=== PATIENT | female | born 1990 | race Caucasian/White ===

== ENCOUNTER 2021-05-15 03:56 | Emergency (ER) | payer MEDICAID ==
--- NOTE | 2021-05-15 04:23 | EDM.PDOC ---
ED HPI GENERAL MEDICAL PROBLEM - General Chief Complaint: General Stated Complaint: throwing up blood Time Seen by Provider: 05/15/21 04:10 Source of Information: Reports: Patient History Limitations: Reports: No Limitations - History of Present Illness INITIAL COMMENTS - FREE TEXT/NARRATIVE: Patient presented to the ED because of productive cough X 4 days and this morning she had hemoptysis X 1. There is no fever or chills but has bee coughing a lot. - Related Data Allergies Allergy/AdvReac Type Severity Reaction Status Date / Time peanut Allergy Airway Verified 05/15/21 04:10 Tightness Penicillins Allergy Airway Verified 05/15/21 04:10 Tightness Home Meds: Home Meds Codeine/guaiFENesin [guaiFENesin-Codeine Syrup] 10 ml PO Q6H PRN #120 ml 05/15/21 [Rx] Cyclobenzaprine [Flexeril] 10 mg PO ASDIRECTED PRN 05/15/21 [History] Sertraline [Zoloft] 100 mg PO DAILY 05/15/21 [History] metFORMIN [Glucophage XR] 500 mg PO DAILY 05/15/21 [History] Social & Family History - Tobacco Use Tobacco Use Status *Q: Current Every Day Tobacco User Years of Tobacco use: 15 Packs/Tins Daily: 0.5 - Caffeine Use Caffeine Use: Reports: Coffee - Recreational Drug Use Recreational Drug Use: Yes Recreational Drug Type: Reports: Marijuana/Hashish Recreational Drug Use Frequency: Socially ED ROS GENERAL - Review of Systems Review Of Systems: See Below Constitutional: Reports: No Symptoms HEENT: Reports: No Symptoms Respiratory: Reports: Cough, Hemoptysis Cardiovascular: Reports: No Symptoms Endocrine: Reports: No Symptoms GI/Abdominal: Reports: No Symptoms : Reports: No Symptoms Musculoskeletal: Reports: No Symptoms Skin: Reports: No Symptoms Neurological: Reports: No Symptoms ED EXAM, GENERAL - Physical Exam Exam: See Below Exam Limited By: No Limitations General Appearance: Alert, No Apparent Distress Eye Exam: Bilateral Eye: PERRL Ears: Normal External Exam, Normal Canal Nose: Normal Inspection, Normal Mucosa, No Blood Throat/Mouth: Normal Inspection, Normal Lips, Normal Teeth Head: Atraumatic, Normocephalic Neck: Normal Inspection, Supple, Non-Tender, Full Range of Motion Respiratory/Chest: No Respiratory Distress, Lungs Clear, Normal Breath Sounds, No Accessory Muscle Use, Chest Non-Tender Cardiovascular: Normal Peripheral Pulses, Regular Rate, Rhythm, No Edema, No Gallop, No JVD, No Murmur, No Rub GI/Abdominal: Normal Bowel Sounds, Soft, Non-Tender, No Organomegaly, No Distention Back Exam: Normal Inspection, Full Range of Motion Extremities: Normal Inspection, Normal Range of Motion Course - Vital Signs Text/Narrative:: Robitussin with codeine 10 ml PO x1 Last Recorded V/S: Last Vital Signs Temp 36.0 C L 05/15/21 04:06 Pulse 75 05/15/21 04:06 Resp 16 05/15/21 04:06 BP 137/73 05/15/21 04:06 Pulse Ox 96 05/15/21 04:06 - Orders/Labs/Meds Meds: Medications Discontinued Medications Generic Name Dose Route Start Last Admin Trade Name Freq PRN Reason Stop Dose Admin Guaifenesin/Codeine Phosphate 10 ml 05/15/21 04:24 Codeine/Guaifenesin 10-100 Mg/5 Ml Syrup 5 Ml Cup PO 05/15/21 04:25 NOW STA Departure - Departure Time of Disposition: 16:30 Disposition: Home, Self-Care 01 Condition: Good Clinical Impression: Hemoptysis, Bronchitis - Discharge Information Prescriptions: Codeine/guaiFENesin [guaiFENesin-Codeine Syrup] 10 ml PO Q6H PRN #120 ml PRN Reason: Cough Instructions: Hemoptysis, [id number], Acute Bronchitis, Adult, [id number] Referrals: Laney Baron MD [Primary Care Provider] - Forms: ED Department Discharge Additional Instructions: Please read discharge instructions on hemoptysis(coughing out blood) and acute bronchitis Increase oral fluids Take Robitussin with codeine 10 ml every 4-6 hours as needed for cough Follow up as needed Sepsis Event Note (ED) - Evaluation Sepsis Screening Result: No Definite Risk - Focused Exam Vital Signs: Vital Signs Temp Pulse Resp BP Pulse Ox 05/15/21 04:06 36.0 C L 75 16 137/73 96
[2021-05-15] MEDS ORDERED: Codeine/guaiFENesin 10-100 MG/5 ML Syrup 5 ML Cup PO STA (04:24)
== END 2021-05-15 04:40 | disposition home or self-care (01) ==
LOC: FB.ED 03:56
DX: J40 Bronchitis, not specified as acute or chronic (principal); R04.2 Hemoptysis; Z72.0 Tobacco use; Z91.010 Allergy to peanuts; Z88.0 Allergy status to penicillin; Z79.899 Other long term (current) drug therapy
CPT/HCPCS: 99283; A9270

== ENCOUNTER 2021-07-14 14:57 | Emergency (ER) | payer MEDICAID ==
[2021-07-14] MEDS ORDERED: Sertraline 100 MG Tab PO STA (15:29)
[2021-07-14] MEDS ORDERED: LORazepam 2 MG/ML SDV IM STA (15:29)
--- NOTE | 2021-07-14 16:45 | EDM.PDOCBH ---
ED HPI GENERAL MEDICAL PROBLEM - General Chief Complaint: Behavioral/Psych Stated Complaint: MENTAL HEALTH Time Seen by Provider: 07/14/21 16:10 Source of Information: Reports: Patient, Family History Limitations: Reports: No Limitations - History of Present Illness INITIAL COMMENTS - FREE TEXT/NARRATIVE: Patient presented to the ED because of suicidal ideation, and worsening anxiety and depression. She does not have an active plan and told me that she does not want to because of her child.Denies having any hallucination, homicidal ideation. Her main stressors according to her are financial issues and family relationship. She is taking Zoloft 100 mg daily but ran out of her prescription a week ago and her PMD won't refill it. Headache Pain Score (Numeric/FACES): 10 - Related Data Allergies Allergy/AdvReac Type Severity Reaction Status Date / Time peanut Allergy Airway Verified 05/15/21 04:10 Tightness Penicillins Allergy Airway Verified 05/15/21 04:10 Tightness Home Meds: Home Meds Cyclobenzaprine [Flexeril] 10 mg PO BEDTIME PRN 05/15/21 [History] Sertraline [Zoloft] 100 mg PO DAILY 05/15/21 [History] ARIPiprazole [Abilify] 5 mg PO DAILY 07/14/21 [History] Sertraline HCl [Zoloft] 100 mg PO DAILY #30 tablet 07/14/21 [Rx] hydrOXYzine HCL [hydrOXYzine] 25 mg PO TID PRN 07/14/21 [History] predniSONE [Prednisone] 10 mg PO ASDIRECTED PRN 07/14/21 [History] Past Medical History HEENT History: Reports: Allergic Rhinitis Genitourinary History: Reports: None SHOEBLACK History: Reports: Polycystic Ovaries, Other SHOEBLACK History: Psychiatric History: Reports: Anxiety, Depression, Other (See Below) Other Psychiatric History: States being assessed for schizophrenia d/t her dad having it. - Past Surgical History Female Surgical History: Reports: Section Social & Family History - Caffeine Use Caffeine Use: Reports: Coffee ED ROS GENERAL - Review of Systems Review Of Systems: See Below Constitutional: Reports: No Symptoms HEENT: Reports: No Symptoms Respiratory: Reports: No Symptoms Cardiovascular: Reports: No Symptoms Endocrine: Reports: No Symptoms GI/Abdominal: Reports: No Symptoms : Reports: No Symptoms Musculoskeletal: Reports: No Symptoms Skin: Reports: No Symptoms Neurological: Reports: No Symptoms Psychiatric: Reports: Anxiety, Depression ED EXAM, BEHAVIORAL HEALTH - Physical Exam Exam: See Below Exam Limited By: No Limitations General Appearance: Alert, No Apparent Distress Eye Exam: Bilateral Eye: PERRL Ears: Normal External Exam, Normal Canal, Normal TMs Nose: Normal Inspection, Normal Mucosa, No Blood Throat/Mouth: Normal Inspection, Normal Lips, Normal Teeth, Normal Gums, Normal Oropharynx Head: Atraumatic, Normocephalic Neck: Normal Inspection, Supple, Non-Tender, Full Range of Motion Respiratory/Chest: No Respiratory Distress, Lungs Clear, Normal Breath Sounds, No Accessory Muscle Use, Chest Non-Tender Cardiovascular: Normal Peripheral Pulses, Regular Rate, Rhythm, No Edema, No Gallop, No JVD, No Murmur, No Rub GI/Abdominal: Normal Bowel Sounds, Soft, Non-Tender, No Organomegaly Back Exam: Normal Inspection, Full Range of Motion Extremities: Normal Inspection, Normal Range of Motion, Non-Tender, No Pedal Edema, Normal Capillary Refill COURSE, BEHAVIORAL HEALTH COMP - Course Vital Signs: Last Vital Signs Temp 36.9 C 07/14/21 16:00 Pulse 98 07/14/21 16:00 Resp 20 07/14/21 16:00 BP 141/94 H 07/14/21 16:00 Pulse Ox 100 07/14/21 16:00 Lab result was reviewed and discussed with patient Aivan 1 mg IM x1 Zoloft 100 mg PO x1 [facility] consult who recommended outpatient psych treatment and restart zoloft 100 mg daily. Orders, Labs, Meds: Active Orders 24 hr Category Date Time Status THYROXINE (T4) FREE, DIRECT Stat Lab 07/14/21 15:30 Received Laboratory Tests 07/14/21 07/14/21 07/14/21 Range/Units 15:30 15:30 15:30 WBC 11.5 H (3.0-10.3) x10-3/uL RBC 4.69 (3.60-5.20) x10(6)uL Hgb 12.0 (11.4-15.5) g/dL Hct 37.1 (34.2-48.2) % MCV 79.3 (76.7-100.5) fL MCH 25.7 (23.9-33.9) pg MCHC 32.4 (31.9-34.8) g/dL RDW 15.7 (12.3-16.5) % Plt Count 364 (151-488) x10(3)uL MPV 8.4 (7.1-12.4) fL Neut % (Auto) 66.7 (30.8-76.2) % Lymph % (Auto) 20.4 (18.4-52.1) % [place] % (Auto) 6.4 (4.4-15.7) % Eos % (Auto) 5.8 (0.6-8.1) % Baso % (Auto) 0.7 (0.2-1.5) % Neut # (Auto) 7.7 H (1.5-6.3) x10-3/uL Lymph # (Auto) 2.3 (1.0-4.4) x10-3/uL [place] # (Auto) 0.7 (0.3-1.0) x10-3/uL Eos # (Auto) 0.7 (0.0-0.8) x10-3/uL Baso # (Auto) 0.1 (0.0-0.1) x10-3/uL Sodium 140 (135-145) mmol/L Potassium 3.4 L (3.5-5.3) mmol/L Chloride 104 (100-110) mmol/L Carbon Dioxide 27 (21-32) mmol/L BUN 12 (7-18) mg/dL Creatinine 0.7 (0.55-1.02) mg/dL Est Cr Clr Drug Dosing TNP Estimated GFR (MDRD) > 60 (>60) BUN/Creatinine Ratio 17.1 (9-20) Glucose 95 (80-116) mg/dL Calcium 8.6 (8.6-10.2) mg/dL Total Bilirubin 0.4 (0.1-1.3) mg/dL AST 23 (5-25) IU/L ALT 37 H (12-36) U/L Alkaline Phosphatase 117 H (56-112) IU/L Total Protein 7.9 (6.0-8.0) g/dL Albumin 3.4 L (3.5-5.2) g/dL Globulin 4.5 g/dL Albumin/Globulin Ratio 0.8 TSH, Ultra Sensitive 1.12 (0.36-3.74) IU/mL Urine Color (YELLOW) Urine Appearance (CLEAR) Urine pH (5.0-6.5) Ur Specific [place] (1.010-1.025) Urine Protein (NEGATIVE) mg/dL Urine Glucose (UA) (NORMAL) mg/dL Urine Ketones (NEGATIVE) mg/dL Urine Occult Blood (NEGATIVE) Urine Nitrite (NEGATIVE) Urine Bilirubin (NEGATIVE) Urine Urobilinogen (NEGATIVE) mg/dL Ur Leukocyte Esterase (NEGATIVE) Urine RBC (0-5) Urine WBC (0-5) Ur Squamous Epith Cells (NS,R,O) Urine Bacteria (NS) Urine HCG, Qual (NEGATIVE) Urine Opiates Screen (NEGATIVE) Ur Buprenorphine Scrn (NEGATIVE) Ur Oxycodone Screen (NEGATIVE) Urine Methadone Screen (NEGATIVE) Ur Propoxyphene Screen (NEGATIVE) Ur Barbiturates Screen (NEGATIVE) Ur Tricyclics Screen (NEGATIVE) Ur Phencyclidine Scrn (NEGATIVE) Ur Amphetamine Screen (NEGATIVE) U Methamphetamines Scrn (NEGATIVE) U Benzodiazepines Scrn (NEGATIVE) U Cocaine Metab Screen (NEGATIVE) U Marijuana (THC) Screen (NEGATIVE) Ethyl Alcohol < 0.03 (<0.03) % 07/14/21 07/14/21 07/14/21 Range/Units 16:00 16:00 16:00 WBC (3.0-10.3) x10-3/uL RBC (3.60-5.20) x10(6)uL Hgb (11.4-15.5) g/dL Hct (34.2-48.2) % MCV (76.7-100.5) fL MCH (23.9-33.9) pg MCHC (31.9-34.8) g/dL RDW (12.3-16.5) % Plt Count (151-488) x10(3)uL MPV (7.1-12.4) fL Neut % (Auto) (30.8-76.2) % Lymph % (Auto) (18.4-52.1) % [place] % (Auto) (4.4-15.7) % Eos % (Auto) (0.6-8.1) % Baso % (Auto) (0.2-1.5) % Neut # (Auto) (1.5-6.3) x10-3/uL Lymph # (Auto) (1.0-4.4) x10-3/uL [place] # (Auto) (0.3-1.0) x10-3/uL Eos # (Auto) (0.0-0.8) x10-3/uL Baso # (Auto) (0.0-0.1) x10-3/uL Sodium (135-145) mmol/L Potassium (3.5-5.3) mmol/L Chloride (100-110) mmol/L Carbon Dioxide (21-32) mmol/L BUN (7-18) mg/dL Creatinine (0.55-1.02) mg/dL Est Cr Clr Drug Dosing Estimated GFR (MDRD) (>60) BUN/Creatinine Ratio (9-20) Glucose (80-116) mg/dL Calcium (8.6-10.2) mg/dL Total Bilirubin (0.1-1.3) mg/dL AST (5-25) IU/L ALT (12-36) U/L Alkaline Phosphatase (56-112) IU/L Total Protein (6.0-8.0) g/dL Albumin (3.5-5.2) g/dL Globulin g/dL Albumin/Globulin Ratio TSH, Ultra Sensitive (0.36-3.74) IU/mL Urine Color Yellow (YELLOW) Urine Appearance Slightly cloudy (CLEAR) Urine pH 5.0 (5.0-6.5) Ur Specific [place] 1.025 (1.010-1.025) Urine Protein Negative (NEGATIVE) mg/dL Urine Glucose (UA) Normal (NORMAL) mg/dL Urine Ketones Negative (NEGATIVE) mg/dL Urine Occult Blood Negative (NEGATIVE) Urine Nitrite Negative (NEGATIVE) Urine Bilirubin Negative (NEGATIVE) Urine Urobilinogen Normal (NEGATIVE) mg/dL Ur Leukocyte Esterase Small H (NEGATIVE) Urine RBC 0-5 (0-5) Urine WBC 0-5 (0-5) Ur Squamous Epith Cells Moderate H (NS,R,O) Urine Bacteria Few H (NS) Urine HCG, Qual Negative (NEGATIVE) Urine Opiates Screen Negative (NEGATIVE) Ur Buprenorphine Scrn Negative (NEGATIVE) Ur Oxycodone Screen Negative (NEGATIVE) Urine Methadone Screen Negative (NEGATIVE) Ur Propoxyphene Screen Negative (NEGATIVE) Ur Barbiturates Screen Negative (NEGATIVE) Ur Tricyclics Screen Negative (NEGATIVE) Ur Phencyclidine Scrn Negative (NEGATIVE) Ur Amphetamine Screen Negative (NEGATIVE) U Methamphetamines Scrn Negative (NEGATIVE) U Benzodiazepines Scrn Negative (NEGATIVE) U Cocaine Metab Screen Negative (NEGATIVE) U Marijuana (THC) Screen Negative (NEGATIVE) Ethyl Alcohol (<0.03) % Medications Discontinued Medications Generic Name Dose Route Start Last Admin Trade Name Freq PRN Reason Stop Dose Admin Lorazepam 1 mg 07/14/21 15:29 07/14/21 15:36 Lorazepam 2 Mg/Ml Sdv IM 07/14/21 15:30 1 mg NOW STA Administration Sertraline HCl 100 mg 07/14/21 15:29 07/14/21 15:39 Sertraline 100 Mg Tab PO 07/14/21 15:30 100 mg NOW STA Administration Departure - Departure Time of Disposition: 17:00 Disposition: Home, Self-Care 01 Condition: Good Clinical Impression: Anxiety, Depression, Suicidal ideation - Discharge Information Prescriptions: Sertraline HCl [Zoloft] 100 mg PO DAILY #30 tablet Instructions: Suicidal Feelings: How to Help Yourself, Major Depressive Disorder, Adult, Managing Anxiety, Adult Referrals: Laney Baron MD [Primary Care Provider] - Forms: ED Department Discharge Additional Instructions: Please read discharge instructions on anxiety, depression and suicidal ideation Keep your appointment to see your doctor tomorrow Start taking Zoloft 100 mg daily Return to the ED if you feel that everything is out of control and wanting to hurt yourself and other people - My Orders Last 24 Hours: My Active Orders 07/14/21 15:30 THYROXINE (T4) FREE, DIRECT Stat - Assessment/Plan Last 24 Hours: My Active Orders 07/14/21 15:30 THYROXINE (T4) FREE, DIRECT Stat
== END 2021-07-14 17:20 | disposition home or self-care (01) ==
LOC: FB.ED 14:57
DX: F32.A Depression, unspecified (principal); F41.9 Anxiety disorder, unspecified; Z91.010 Allergy to peanuts; Z88.0 Allergy status to penicillin; Z79.899 Other long term (current) drug therapy
CPT/HCPCS: 36415; 80053; 80307; 81001; 81025; 84439; 84443; 85025; 96372; 99284; A9270; J2060

== ENCOUNTER 2022-01-06 22:59 | Emergency (ER) | payer MEDICAID | END 2022-01-07 00:30 | disposition home or self-care (01) | LOC: FB.ED 22:59 | DX: J06.9 Acute upper respiratory infection, unspecified (principal); Z88.0 Allergy status to penicillin; Z91.010 Allergy to peanuts | CPT/HCPCS: 87651-QW; 99281; 99283 ==

== ENCOUNTER 2022-01-08 20:49 | Emergency (ER) | payer MEDICAID ==
[2022-01-08] MEDS ORDERED: Acetaminophen/Codeine 300-30 MG Tab PO ONE (20:50)
== END 2022-01-08 22:00 | disposition home or self-care (01) ==
LOC: FB.ED 20:49
DX: J02.9 Acute pharyngitis, unspecified (principal)
CPT/HCPCS: 99281; 99282; A9270-GY

== ENCOUNTER 2022-02-11 15:28 | Emergency (ER) | payer MEDICAID ==
[2022-02-11] MEDS ORDERED: traMADol 50 MG Tab PO ONE (15:29)
[2022-02-11] MEDS ORDERED: Morphine 4 MG/ML VIAL IVPUSH ONE (15:58)
[2022-02-11] MEDS ORDERED: Ondansetron 4 MG/2 ML SDV IVPUSH ONE (15:58)
[2022-02-11] MEDS ORDERED: Sodium Chloride 0.9% 10 ML Syringe FLUSH PRN (15:58)
[2022-02-11] MEDS ORDERED: Sodium Chloride 0.9% 1,000 ML IV ONE (15:58)
[2022-02-11 16:38] LABS: ESTIMATED GFR 125 mL/min (>60)
[2022-02-11] MEDS ORDERED: Ketorolac 30 MG/ML SDV IVPUSH ONE (17:40)
== END 2022-02-11 20:42 | disposition home or self-care (01) ==
LOC: FB.ED 15:28
DX: R10.12 Left upper quadrant pain (principal); E66.9 Obesity, unspecified; Z68.42 Body mass index [BMI] 45.0-49.9, adult; Z88.0 Allergy status to penicillin; Z91.010 Allergy to peanuts; Z72.0 Tobacco use
CPT/HCPCS: 36415; 71046; 74176; 80053; 81001; 81025; 85025; 85379; 86140; 96361; 96374; 96375; 99284; A9270; J1885; J2270; J2405; J3490; J7030

== ENCOUNTER 2022-03-10 16:49 | Emergency (ER) | payer MEDICAID ==
[2022-03-10] MEDS ORDERED: Acetaminophen 500 MG Tab PO ONE (16:53)
[2022-03-10] MEDS ORDERED: Lidocaine 2% Viscous Solution 15 ML UD PO ONE ×2 (16:53→17:17)
[2022-03-10] MEDS ORDERED: Ibuprofen 800 MG Tab PO ONE (16:53)
== END 2022-03-10 17:30 | disposition home or self-care (01) ==
LOC: FB.ED 16:49
DX: K04.7 Periapical abscess without sinus (principal); E66.9 Obesity, unspecified; Z68.30 Body mass index [BMI] 30.0-30.9, adult; Z88.1 Allergy status to other antibiotic agents; Z88.0 Allergy status to penicillin; Z91.010 Allergy to peanuts; Z79.899 Other long term (current) drug therapy; Z79.84 Long term (current) use of oral hypoglycemic drugs; Z86.16 Personal history of COVID-19
CPT/HCPCS: 99282; A9270; 99281

== ENCOUNTER 2023-05-17 10:10 | Emergency (ER) | payer MEDICAID ==
[2023-05-17] MEDS ORDERED: Lactulose Soln 10 GM/15 ML 30 ML UD Cup PO ONE (10:31)
[2023-05-17] MEDS: Lactulose Soln 10 GM/15 ML 15 ML UD Cup PO ONE (10:54)
[2023-05-17] MEDS: Bisacodyl 5 MG Tab PO ONE (10:54)
== END 2023-05-17 11:06 | disposition home or self-care (01) ==
LOC: FB.ED 10:10
DX: K59.00 Constipation, unspecified (principal); E66.9 Obesity, unspecified; Z68.43 Body mass index [BMI] 50.0-59.9, adult; Z86.16 Personal history of COVID-19; Z98.890 Other specified postprocedural states; Z88.1 Allergy status to other antibiotic agents; Z88.0 Allergy status to penicillin; Z91.040 Latex allergy status
CPT/HCPCS: 99283; A9270